=== PATIENT | female | born 1965 | race Hispanic/Latino ===

== ENCOUNTER 2024-03-10 18:26 | Emergency (ER) | payer SELFPAY ==
[~2024-03-10] VITALS: Ht 152.4 cm; Wt 62.6 kg
[2024-03-10] MEDS: acetaMINOPHEN 325 MG TAB PO ONE (18:56)
[2024-03-10] MEDS: ketOROlac 60 MG VIAL (30MG/ML) IM ONE (18:57)
[2024-03-10] MEDS ORDERED: AMOX500C2 PO (19:33)
--- NOTE | 2024-03-10 19:33 | ERN ---
ED Note History of Present Illness Stated Complaint: EAR PAIN Chief Complaint: Earache Time Seen by MD: 18:29 Time Seen by Midlevel: 18:29 Dictation: The patient is a 58-year-old female who presents to the emergency department with bilateral ear pain onset two weeks ago. Patient reports decreased hearing and buzzing sensation. Denies any trauma. Denies any fevers. Home Meds Active Scripts Amoxicillin (Amoxicillin) 500 Mg Capsule, 1 CAP PO TID for 10 Days, #30 CAP 0 Refills Prov:THELMA GUZMAN [employer]Y ENGINEER 03/10/24 Past Medical History Past Medical History: High Cholesterol Surgical History: None RN Note Reviewed/Agreed w/PFSH: Yes Review of System Dictation Constitutional: Negative for fever,chills, and weight loss Eyes: Negative for injury, pain,redness, and discharge ENT: Negative for injury,pain or swelling positive for bilateral ear pain, decreased hearing Cardiovascular: Negative for chest pain, palpitations, and edema Respiratory: Negative for shortness of breath, cough, and wheezing, Abdomen/GI: Negative for abdominal pain, nausea, vomiting, diarrhea, and constipation Back: Negative for injury and pain : Negative for injury, bleeding and discharge MS/Extremity: Negative for injury and deformity Skin: Negative for rash, and discoloration Neuro: Negative for headache, weakness, numbness, tingling, and seizure Psych: Negative for suicide ideation, homicidal ideation, and hallucinations Initial Vital Sign VS Vital Signs Date Time Temp Pulse Resp B/P (MAP) Pulse Ox O2 Delivery O2 Flow Rate FiO2 03/10/24 18:28 98.2 78 18 130/84 98 Physical Exam Dictation Vital Signs reviewed General Appearance: Alert, oriented x 3, no acute distress, well developed, nourished. Head and Face: non-traumatic. Eyes: PERRL, pink conjunctivas, eyelid no trauma, anterior chamber with arcus senilis. Ears: Pinnas intact and no signs of trauma or erythema ear canals clear and no discharge, left tm with affusion, slight erythema Nose: No discharge, no bleeding. Oropharynx: Mouth normal, tongue pink. pharynx clear,no erythema, tonsils no exudates, no abscesses noted, mucous membrane moist Neck: Supple, non-tender, no thyromegaly, no masses, no JVD, no bruits Breast:Deferred Chest:No tenderness, no crepitus, no paradoxical movement, no retractions Lungs:Clear, well-ventilated, symmetric, no rales, no wheezing, no rhonchi, no stridor, good breath sounds bilaterally Heart: Regular rate, regular rhythm, no murmur, no gallops Vascular: no peripheral edema, Abdomen: Soft, positive bowel sounds, nondistended, no guarding, nontender, no rebound, no masses no hepatomegaly, no splenomegaly, no Hanson's sign, no hernias. Rectal: Deferred Genital: Deferred Neurological: Normal speech, motor function intact, sensory function intact Musculoskeletal: Neck nontender, full range of motion, back nontender, full range of motion, Extremities: nontender, full range of motion Skin: Color pink, dry, no turgor, no rash, no lacerations, no abrasions, no contusions. Lymphatic: Deferred Results (Laboratory/Radiology) Labs Reviewed?: Yes ED Course ED Course Orders Procedure Category Date Status Time Ketorolac 60mg/2ml PHA 03/10/24 Complete (Toradol 60mg/2ml) 19:00 Acetaminophen 325 Tab PHA 03/10/24 Complete (Tylenol 325mg Tab 19:00 Current Medications Medications (Trade) Dose Ordered Sig/Jeanine Route PRN Reason Start Time Stop Time Status Last Admin Dose Admin Acetaminophen (TYLenol 325MG TAB) 650 mg ONCE ONCE PO 03/10/24 19:00 03/10/24 19:01 DC 03/10/24 18:56 Ketorolac Tromethamine (toRADol 60MG/ 2ML) 30 mg ONCE ONCE IM 03/10/24 19:00 03/10/24 19:01 DC 03/10/24 18:57 Vital Signs Date Time Temp Pulse Resp B/P (MAP) Pulse Ox O2 Delivery O2 Flow Rate FiO2 03/10/24 18:28 98.2 78 18 130/84 98 Medical Decision Making MDM The patient is a 58-year-old female who presents to the emergency department with bilateral ear pain onset two weeks ago. Patient reports decreased hearing and buzzing sensation. Denies any trauma. Denies any fevers. Patient with effusion to left tympanic membrane and slight erythema we will be treated with the antibiotics and instructed to follow up with PCP for possible ENT referral. Differential diagnosis: otitis media, otitis externa, tympanic membrane ruptu re. Need for hospitalization: Patient does not meet criteria for hospitalization. There are no social concerns with this patient. DX & DISP Disposition: Discharge Departure Impression: Primary Impression: Acute otitis media with effusion of left ear Condition: Stable Scripts Amoxicillin (Amoxicillin) 500 Mg Capsule 1 CAP PO TID for 10 Days, #30 CAP 0 Refills Prov: THELMA GUZMAN 03/10/24 Additional Instructions: Please follow up with PCP in 1-2 days. If symptoms worsen you might need referral to ENT. FOLLOW-UP WITH PRIMARY CARE PROVIDER IN 1 TO 2 DAYS. TAKE MEDICATIONS DIRECTED HERE IN THE EMERGENCY ROOM. OKAY TO CONTINUE HOME MEDICATIONS UNLESS OTHERWISE DISCUSSED DURING YOUR VISIT IN THE EMERGENCY ROOM TODAY. RETURN TO YOUR NEAREST EMERGENCY ROOM IF SYMPTOMS WORSEN OR IF THERE IS NO IMPROVEMENT. CALL 911 IF YOU NEED IMMEDIATE ASSISTANCE. TAKE TYLENOL OR MOTRIN [id number] NEEDED AND IF NO CONTRAINDICATIONS ARE PRESENT. INCREASE ORAL HYDRATION. A WOUND CULTURE OR URINE CULTURE WAS ORDERED HERE IN THE EMERGENCY ROOM DEPARTMENT PLEASE FOLLOW-UP WITH PRIMARY CARE PROVIDER AND ADVISE THEM TO GET REPEAT PORTS FROM OUR FACILITY. IF YOU HAD ANY DINA WRAP/SPLINTS THAT WERE APPLIED HERE, PLEASE DO NOT REMOVE THEM UNTIL YOU SEE YOUR PRIMARY CARE OR SPECIALTY. Referrals: SELF,REFERRAL (PCP) Time of Disposition: 19:31 I have reviewed the case, and I agree with, Diagnosis and Plan THELMA GUZMAN Mar 10, 2024 19:33
[2024-03-10 19:41] VITALS: BP 127/79; PULSE 76; RESP 18; TEMP 98.2; O2SAT 98
== END 2024-03-10 19:44 | disposition home or self-care (01) ==
LOC: EDH 18:26
DX: H65.192 Other acute nonsuppurative otitis media, left ear (principal); E78.00 Pure hypercholesterolemia, unspecified; H92.01 Otalgia, right ear
CPT/HCPCS: 99283; 96372; J1885